=== PATIENT | female | born 1975 | race Asian ===

== ENCOUNTER 2016-02-27 07:03 | Emergency (ER) | payer OTHER ==
[2016-02-27 07:10] VITALS: BP 138/78
--- NOTE | 2016-02-27 07:18 | UC ---
Abdominal Pain Female HPI - HPI Summary HPI Summary: SUDDEN ONSET OF LOWER ABDOMINAL PAIN AROUND MIDNIGHT. CONSTANT SINCE THEN. SHARP AND CRAMPING. EMESIS X 2. NO FEVER OR DIARRHEA. NO BRBPR. SEXUALLY ACTIVE WITH - CONDOMS FOR CONTRACEPTION. RECENT RETURN FROM [place] 5 DAYS AGO. - History of Current Complaint Chief Complaint: UCAbdominalPain Stated Complaint: ABD PAIN Time Seen by Provider: 02/27/16 07:12 Hx Obtained From: Patient Hx Last Menstrual Period: 01/29 Onset/Duration: Sudden Onset Timing: Constant Severity Initially: Moderate Severity Currently: Moderate Pain Intensity: 8 Pain Scale Used: 0-10 Numeric Location: Discrete At: LLQ, Suprapubic Radiates: No Character: Cramping, Sharp Aggravating Factor(s): Nothing Alleviating Factor(s): Nothing Associated Signs and Symptoms: Positive: Decreased Appetite, Nausea, Vomiting Allergies/Adverse Reactions: Allergies Allergy/AdvReac Type Severity Reaction Status Date / Time No Known Allergies Allergy Verified 03/11/15 14:46 Home Medications: Home Medications Acetaminophen [Eq Acetaminophen] 325 mg PO 02/27/16 [History] PMH/Surg Hx/FS Hx/Imm Hx Previously Healthy: Yes Endocrine History Of: Denies: Diabetes Cardiovascular History Of: Denies: Hypertension, Pacemaker/ICD GI/ History Of: Denies: Renal Disease - Surgical History Surgical History: None - Family History Known Family History: Negative: Hypertension, Diabetes - Social History Alcohol Use: None Substance Use Type: None Smoking Status (MU): Never Smoked Tobacco Review of Systems Constitutional: Negative Respiratory: Negative Cardiovascular: Negative Gastrointestinal: Abdominal Pain, Vomiting Genitourinary: Negative All Other Systems Reviewed And Are Negative: Yes Physical Exam Triage Information Reviewed: Yes Appearance: Well-Nourished, Ill-Appearing, Pain Distress - MODERATE PAIN. PT HUNCHED OVER HOLDING LOWER ABDOMEN Vital Signs: Initial Vital Signs Temp 97.4 F 02/27/16 07:06 Pulse 58 02/27/16 07:06 Resp 18 02/27/16 07:06 BP 138/78 02/27/16 07:06 Pulse Ox 100 02/27/16 07:06 Vital Signs Reviewed: Yes Eyes: Positive: Conjunctiva Clear ENT: Positive: Hearing grossly normal Neck: Positive: Supple Respiratory Exam: Normal Cardiovascular Exam: Normal Abdomen Description: Positive: Soft, Guarding - VOLUNTARY, Other: - TTP SUPRAPUBIC AND LLQ REGIONS. Negative: CVA Tenderness (R), CVA Tenderness (L), Distended Bowel Sounds: Positive: Present Musculoskeletal: Positive: No Edema Neurological: Positive: Alert Psychological: Positive: Age Appropriate Behavior Skin: Negative: rashes Diagnostics - Laboratory Diagnostic Studies Completed/Ordered: URINE TEST NEGATIVE. URINE DIP SP. GR. 1.020, 2+ LEUKS Abd Pain Female Course/Dx - Course Course Of Treatment: PT FEELING BETTER WHILE SITTING IN EXAM ROOM. DISCUSSED TRANSFER TO ER VS CAREFUL MONITORING OF SX AT HOME. PT CHOOSES TO GO HOME. WILL GO TO ER WITHOUT FAIL IF SX WORSEN OR DO NOT IMPROVE. - Differential Dx/Diagnosis Differential Diagnosis: Appendicitis, Diverticulitis, Irritable Bowel Syndrome, Ovarian Cyst, Urinary Tract Infection Provider Diagnoses: ACUTE GASTROENTERITIS Discharge - Discharge Plan Condition: Stable Disposition: HOME Patient Education Materials: Gastroenteritis (ED) Referrals: Kitty Valente MD [Medical Doctor] - If Needed Additional Instructions: ENSURE ADEQUATE HYDRATION. CLEAR LIQUIDS, BLAND DIET. AVOID CAFFEINE, DAIRY, GREASY, SPICY FOODS. ONCE YOU ARE TOLERATING CLEAR LIQUIDS YOU CAN ADVANCE TO SIMPLE, BLAND FOODS. GO TO THE ER WITHOUT FAIL IF YOUR SYMPTOMS ARE WORSENING OR NOT IMPROVING OVER THE NEXT 24-48 HOURS.
== END 2016-02-27 07:46 | disposition home or self-care (01) ==
LOC: UCEAST 07:03
DX: K52.9 Noninfective gastroenteritis and colitis, unspecified (principal); R10.30 Lower abdominal pain, unspecified; R11.10 Vomiting, unspecified; Z32.02 Encounter for pregnancy test, result negative
CPT/HCPCS: 81002; 81025; 87086; 99211; G0463

== ENCOUNTER 2016-02-27 10:30 | Emergency (ER) | payer OTHER ==
[2016-02-27] MEDS ORDERED: Ketorolac INJ* 30 MG/ML 1 ML VIAL IV ONE (11:30)
[2016-02-27] MEDS ORDERED: Ondansetron INJ* 2 MG/ML VIAL IV ONE (11:30)
[2016-02-27] MEDS ORDERED: HYDROmorphone INJ* 1 MG/ML CARPUJECT SYRINGE IV ONE ×2 (11:30→12:59)
[2016-02-27] MEDS ORDERED: NS 0.9% 1000 ML* 1,000 ML IV ONE (11:31)
[2016-02-27 11:41] LABS: Hematocrit 45 % (35-47); Mean Corpuscular HGB Conc 34 g/dl (31-36); Mean Corpuscular Hemoglobin 31 pg (27-31); Mean Corpuscular Volume 92 fL (80-97); Mean Platelet Volume 8 um3 (7.4-10.4); Red Blood Count 4.83 10^6/ul (4.0-5.4); Red Cell Distribution Width 13 % (10.5-15); White Blood Count 12.1 10^3/ul (3.5-10.8)
[2016-02-27 11:54] LABS: ALT 13 U/L (7-52); AST 14 U/L (13-39); Albumin 5.1 g/dL (3.2-5.2); Alkaline Phosphatase 34 U/L (34-104); Anion Gap 13 mmol/L (2-11); BUN/Creatinine Ratio 16.2 (8-20); Blood Urea Nitrogen 12 mg/dL (6-24); C Reactive Protein < 1.00 mg/L (< 5.00); CO2 Carbon Dioxide 23 mmol/L (22-32); Calcium 10.2 mg/dL (8.6-10.3); Chloride 99 mmol/L (101-111); EGFR Non-African American 87.8 (>60); Glucose 106 mg/dL (70-100); Lipase 13 U/L (11.0-82.0); Potassium 3.1 mmol/L (3.5-5.0); Sodium 135 mmol/L (133-145); Total Protein 9.1 g/dL (6.4-8.9)
--- NOTE | 2016-02-27 12:10 | RAD ---
HISTORY: Left flank pain COMPARISONS: None TECHNIQUE: Multiple transverse and longitudinal ultrasound images were obtained of the left kidney using grayscale and color Doppler imaging. FINDINGS: RIGHT KIDNEY: No images are submitted of the right kidney LEFT KIDNEY: There is mildly echogenic renal fat. There are no shadowing echogenic foci to suggest calculi. There is no hydronephrosis. The left kidney measures 10 x 3.9 x 4 cm. BLADDER: No images are submitted of the bladder. AORTA AND IVC: No images are submitted of the vasculature. RETROPERITONEUM: Unremarkable. OTHER: None. IMPRESSION: NO APPRECIABLE HYDRONEPHROSIS OR NEPHROLITHIASIS OF THE LEFT KIDNEY
[2016-02-27 12:35] LABS: Budding Yeast Present (Absent); Urine Bacteria Absent (Absent); Urine Bilirubin Negative (Negative); Urine Glucose Negative (Negative); Urine Nitrite Negative (Negative)
--- NOTE | 2016-02-27 13:24 | RAD ---
CLINICAL HISTORY: Left flank pain COMPARISON: None TECHNIQUE: Multiple contiguous axial CT scans were obtained of the abdomen and pelvis, without intravenous contrast enhancement. Coronal and sagittal multiplanar reformations are submitted for review. Oral contrast was not administered. FINDINGS: The study is limited by the lack of intravenous contrast. This limits evaluation of the solid organs and vasculature. LUNG BASES: The lung bases are clear. LIVER: The liver is normal in shape, size, contour, and attenuation. BILE DUCTS: There is no intrahepatic or extrahepatic biliary dilatation. GALLBLADDER: The gallbladder is normal, without pericholecystic inflammatory change. PANCREAS: The pancreas is normal, without mass or ductal dilatation. SPLEEN: Normal in size and appearance. UPPER GI TRACT: Evaluation of the gastrointestinal tract is limited by incomplete gastric distention. The upper GI tract is unremarkable. SMALL BOWEL AND MESENTERY: The small bowel is normal in contour, course, and caliber. There is no obstruction or dilatation. COLON: The colon is normal in contour, course, caliber. There is no pericolonic inflammatory change. ADRENALS: Normal bilaterally. KIDNEYS: The kidneys are normal in shape, size, contour, and axis. There is no hydronephrosis or nephrolithiasis. BLADDER: The bladder is collapsed and is not well evaluated. PELVIC ORGANS: There is a 6.2 x 5.6 x 5.7 cm fat-containing mass of the lower anterior pelvis. The pelvic organs are otherwise normal for patient age and technique. AORTA: The aorta is normal. IVC: Unremarkable LYMPH NODES: There is no lymphadenopathy by size criteria. ABDOMINAL WALL: There is no evidence for abdominal wall hernia. BONES AND SOFT TISSUES: Unremarkable OTHER: There is trace amount of free fluid within the pelvic cul-de-sac. This may BE physiologic within a reproductive age female. IMPRESSION: 1. NO HYDRONEPHROSIS OR NEPHROLITHIASIS. 2. 6.2 CM FAT-CONTAINING MASS OF THE LOWER PELVIS, LIKELY A LARGE OVARIAN DERMOID CYST. IF THERE IS CLINICAL CONCERN FOR OVARIAN TORSION, CONSIDER ULTRASOUND OF THE PELVIS
--- NOTE | 2016-02-27 15:20 | RAD ---
INDICATION: Left lower quadrant pain . Dermoid cyst COMPARISON: CT February 27, 2016 TECHNIQUE: Longitudinal and transverse transvaginal scans of the pelvis were obtained. FINDINGS: Uterus: The uterus is normal in size. There are no focal masses. The uterus measures 9.0 x 3.9 x 4.4 cm. Endometrial thickness: The endometrial thickness is measured at 1.2 cm. . Free fluid: There is a small amount of free fluid. . Ovaries: The right ovary is measured at 2.4 x 1.7 x 2.0 cm. There is a solid, nonshadowing, echogenic mass measuring 1.6 cm most consistent with a fat-containing dermoid cyst of the right ovary. The left ovary measures 3.7 x 2.4 x 3.2 cm. This measurement is exclusive of the dominant, midline, fat-containing mass identified on the CT which is likely left ovarian in origin although no direct connection can be confirmed sonographically. The size of this fat-containing mass is difficult to ascertain on the ultrasound due to acoustic shadowing but it is noted measured at 6.[address] In addition, there is a complex 1.7 cm left ovarian cyst. Doppler interrogation demonstrates flow to each ovary. There is no evidence of ovarian torsion. Other: None IMPRESSION: 1. No evidence of ovarian torsion. 2. Suspect bilateral dermoid cysts with the dominant fat-containing mass likely arising from the left ovary. The CT suggest that this measures up to 6.3 cm. 3. Suggest gynecologic referral.
[2016-02-27] MEDS ORDERED: HYDROcodone/ACETAMIN 5-325 MG* 1 TAB PO ONE (15:29)
[2016-02-27] MEDS ORDERED: oxyCODONE/Acetamin 5/325 MG* TAB PO ONE (15:31)
--- NOTE | 2016-02-27 15:37 | ED ---
Nikos Blake Adam, scribed for Jaspreet Lema MD on 02/27/16 at 1132 . Abdominal Pain/Female - HPI Summary HPI Summary: Pt is a 40 year old female presenting with LLQ abdominal pain that set on last night, waking her from sleep. It is a sharp cramping pain that has been constant since it set on. It does not radiate anywhere. Pt states that she urinated this morning and it was normal. She denies dysuria and back pain. No Hx of kidney stones. Pt returned from [facility] 5 days ago. - History of Current Complaint Chief Complaint: EDAbdPain Stated Complaint: LOWER ABD PAIN Time Seen by Provider: 02/27/16 11:24 Hx Obtained From: Patient Onset/Duration: Sudden Onset, Lasting Hours, Still Present Timing: Constant Severity Initially: Moderate Severity Currently: Moderate Pain Intensity: 10 Pain Scale Used: 0-10 Numeric Location: Discrete At: LLQ Radiates: No Character: Sharp, Cramping Aggravating Factor(s): Nothing Alleviating Factor(s): Nothing Associated Signs and Symptoms: Positive: Negative Allergies/Adverse Reactions: Allergies Allergy/AdvReac Type Severity Reaction Status Date / Time No Known Allergies Allergy Verified 03/11/15 14:46 PMH/Surg Hx/FS Hx/Imm Hx Endocrine/Hematology History: Denies: Hx Diabetes Cardiovascular History: Denies: Hx Hypertension, Hx Pacemaker/ICD History: Denies: Hx Renal Disease Sensory History: Denies: Hx Hearing Aid Psychiatric History: Denies: Hx Panic Disorder Infectious Disease History: No Infectious Disease History: Denies: Traveled Outside the [place] in Last 30 Days - Family History Known Family History: Negative: Hypertension, Diabetes - Social History Occupation: Employed Full-time - Homemaker Lives: With Family - Alcohol Use: None Hx Substance Use: No Substance Use Type: Reports: None Hx Tobacco Use: No Smoking Status (MU): Never Smoked Tobacco Review of Systems Positive: Abdominal Pain - LLQ Genitourinary: Negative Negative: dysuria Musculoskeletal: Negative Negative: Arthralgia, Myalgia All Other Systems Reviewed And Are Negative: Yes Physical Exam Triage Information Reviewed: Yes Vital Signs On Initial Exam: Initial Vitals Temp Pulse Resp BP Pulse Ox 98.7 F 161 32 114/62 97 02/27/16 10:48 02/27/16 10:48 02/27/16 10:48 02/27/16 10:48 02/27/16 10:48 Vital Signs Reviewed: Yes Appearance: Positive: Well-Appearing, No Pain Distress Skin: Positive: Warm, Skin Color Reflects Adequate Perfusion, Dry Head/Face: Positive: Normal Head/Face Inspection Eyes: Positive: Normal ENT: Positive: Normal ENT inspection Neck: Positive: Supple, Nontender Respiratory/Lung Sounds: Positive: Clear to Auscultation, Breath Sounds Present Cardiovascular: Positive: RRR Abdomen Description: Positive: Nontender, Soft Bowel Sounds: Positive: Present Musculoskeletal: Positive: Normal Neurological: Positive: Normal Psychiatric: Positive: Normal, Affect/Mood Appropriate Diagnostics - Vital Signs Vital Signs Temp Pulse Resp BP Pulse Ox 02/27/16 10:48 98.7 F 161 32 114/62 97 - Laboratory Lab Results: Lab Results 02/27/16 02/27/16 02/27/16 Range/Units 11:15 11:15 11:15 WBC 12.1 H (3.5-10.8) 10^3/ul RBC 4.83 (4.0-5.4) 10^6/ul Hgb 15.0 (12.0-16.0) g/dl Hct 45 (35-47) % MCV 92 (80-97) fL MCH 31 (27-31) pg MCHC 34 (31-36) g/dl RDW 13 (10.5-15) % Plt Count 296 (150-450) 10^3/ul MPV 8 (7.4-10.4) um3 Neut % (Auto) 88.7 H (38-83) % Lymph % (Auto) 7.7 L (25-47) % [place] % (Auto) 2.9 (1-9) % Eos % (Auto) 0.1 (0-6) % Baso % (Auto) 0.6 (0-2) % Absolute Neuts (auto) 10.8 H (1.5-7.7) 10^3/ul Absolute Lymphs (auto) 0.9 L (1.0-4.8) 10^3/ul Absolute Monos (auto) 0.4 (0-0.8) 10^3/ul Absolute Eos (auto) 0 (0-0.6) 10^3/ul Absolute Basos (auto) 0.1 (0-0.2) 10^3/ul Absolute Nucleated RBC 0 10^3/ul Nucleated RBC % 0 Sodium 135 (133-145) mmol/L Potassium 3.1 L (3.5-5.0) mmol/L Chloride 99 L (101-111) mmol/L Carbon Dioxide 23 (22-32) mmol/L Anion Gap 13 H (2-11) mmol/L BUN 12 (6-24) mg/dL Creatinine 0.74 (0.51-0.95) mg/dL Est GFR ( Amer) 113.0 (>60) Est GFR (Non-Af Amer) 87.8 (>60) BUN/Creatinine Ratio 16.2 (8-20) Glucose 106 H (70-100) mg/dL Lactic Acid 2.4 H* (0.5-2.0) mmol/L Calcium 10.2 (8.6-10.3) mg/dL Total Bilirubin 0.80 (0.2-1.0) mg/dL AST 14 (13-39) U/L ALT 13 (7-52) U/L Alkaline Phosphatase 34 (34-104) U/L C-Reactive Protein < 1.00 (< 5.00) mg/L Total Protein 9.1 H (6.4-8.9) g/dL Albumin 5.1 (3.2-5.2) g/dL Globulin 4.0 (2-4) g/dL Albumin/Globulin Ratio 1.3 (1-3) Lipase 13 (11.0-82.0) U/L Urine Color Urine Appearance Urine pH (5-9) Ur Specific [place] (1.010-1.030) Urine Protein (Negative) Urine Ketones (Negative) Urine Blood (Negative) Urine Nitrate (Negative) Urine Bilirubin (Negative) Urine Urobilinogen (Negative) Ur Leukocyte Esterase (Negative) Urine WBC (Auto) (Absent) Urine RBC (Auto) (Absent) Ur Squamous Epith Cells (Absent) Urine Bacteria (Absent) Urine Yeast (Absent) Urine Glucose (Negative) 02/27/16 Range/Units 12:10 WBC (3.5-10.8) 10^3/ul RBC (4.0-5.4) 10^6/ul Hgb (12.0-16.0) g/dl Hct (35-47) % MCV (80-97) fL MCH (27-31) pg MCHC (31-36) g/dl RDW (10.5-15) % Plt Count (150-450) 10^3/ul MPV (7.4-10.4) um3 Neut % (Auto) (38-83) % Lymph % (Auto) (25-47) % [place] % (Auto) (1-9) % Eos % (Auto) (0-6) % Baso % (Auto) (0-2) % Absolute Neuts (auto) (1.5-7.7) 10^3/ul Absolute Lymphs (auto) (1.0-4.8) 10^3/ul Absolute Monos (auto) (0-0.8) 10^3/ul Absolute Eos (auto) (0-0.6) 10^3/ul Absolute Basos (auto) (0-0.2) 10^3/ul Absolute Nucleated RBC 10^3/ul Nucleated RBC % Sodium (133-145) mmol/L Potassium (3.5-5.0) mmol/L Chloride (101-111) mmol/L Carbon Dioxide (22-32) mmol/L Anion Gap (2-11) mmol/L BUN (6-24) mg/dL Creatinine (0.51-0.95) mg/dL Est GFR ( Amer) (>60) Est GFR (Non-Af Amer) (>60) BUN/Creatinine Ratio (8-20) Glucose (70-100) mg/dL Lactic Acid (0.5-2.0) mmol/L Calcium (8.6-10.3) mg/dL Total Bilirubin (0.2-1.0) mg/dL AST (13-39) U/L ALT (7-52) U/L Alkaline Phosphatase (34-104) U/L C-Reactive Protein (< 5.00) mg/L Total Protein (6.4-8.9) g/dL Albumin (3.2-5.2) g/dL Globulin (2-4) g/dL Albumin/Globulin Ratio (1-3) Lipase (11.0-82.0) U/L Urine Color Yellow Urine Appearance Cloudy Urine pH 8.0 (5-9) Ur Specific [place] 1.027 (1.010-1.030) Urine Protein 1+(30 mg/dl) H (Negative) Urine Ketones 2+ H (Negative) Urine Blood 1+ H (Negative) Urine Nitrate Negative (Negative) Urine Bilirubin Negative (Negative) Urine Urobilinogen Negative (Negative) Ur Leukocyte Esterase Trace H (Negative) Urine WBC (Auto) Trace(0-5/hpf) (Absent) Urine RBC (Auto) 1+(3-5/hpf) H (Absent) Ur Squamous Epith Cells Present H (Absent) Urine Bacteria Absent (Absent) Urine Yeast Present H (Absent) Urine Glucose Negative (Negative) Result Diagrams: 02/27/16 11:15 02/27/16 11:15 Lab Statement: Any lab studies that have been ordered have been reviewed, and results considered in the medical decision making process. - CT A/P CT Interpretation Completed By: Radiologist - IMPRESSION: 1. NO HYDRONEPHROSIS OR NEPHROLITHIASIS. 2. 6.2 CM FAT-CONTAINING MASS OF THE LOWER PELVIS, LIKELY A LARGE OVARIAN DERMOID CYST. IF THERE IS CLINICAL CONCERN FOR OVARIAN TORSION, CONSIDER ULTRASOUND OF THE PELVIS - EKG 11:01 Cardiac Rate: NL - 75 BPM EKG Rhythm: Sinus Rhythm - Baseline wander - Additional Comments Diagnostic Additional Comments: Lactic Acid - 2.4 Renal Ultrasound - IMPRESSION: NO APPRECIABLE HYDRONEPHROSIS OR NEPHROLITHIASIS OF THE LEFT KIDNEY Abdominal Pain Fem Course/Dx - Course Course Of Treatment: Ms. Wills presented with sudden onset of severe LLQ pain. She had a slight WBC elevation and a spot of blood in her urine. A CT was negative for stone but positive for a likely dermoid cyst. An U/S was obtained and negative for torsion. She has been given PO pain medicine and if this controls her pain she will be D/C'd for F/U with Dr. Gerardo. - Diagnoses Provider Diagnoses: Dermoid cyst of both ovaries Discharge - Discharge Plan Condition: Stable Disposition: HOME Prescriptions: oxyCODONE/Acetamin 5/325 MG* [Percocet 5/325 TAB*] 1 tab PO Q6H PRN #20 tab MDD 4 PRN Reason: Pain Referrals: No Primary Care Phys,NOPCP [Primary Care Provider] - The documentation as recorded by the Nikos melchor Adam accurately reflects the service I personally performed and the decisions made by me, Jaspreet Lema MD.
[2016-02-27 16:35] VITALS: BP 122/65
--- NOTE | 2016-05-11 11:23 | ED ---
Danny Blake Erika, scribed for Jaspreet Lema MD on 02/27/16 at 1544 . Progress - Results/Orders Results/Orders: Transvaginal US read by radiologist: IMPRESSION: 1. No evidence of ovarian torsion. 2. Suspect bilateral dermoid cysts with the dominant fat-containing mass likely arising from the left ovary. The CT suggest that this measures up to 6.3 cm. 3. Suggest gynecologic referral. Course/Dx - Diagnoses Provider Diagnoses: Dermoid cyst of both ovaries The documentation as recorded by the Danny melchor Erika accurately reflects the service I personally performed and the decisions made by Torey soler Richard L, MD.
== END 2016-02-27 16:34 | disposition home or self-care (01) ==
LOC: ED 10:30
DX: D27.9 Benign neoplasm of unspecified ovary (principal); R10.32 Left lower quadrant pain
CPT/HCPCS: 36415; 74176; 76775; 76830; 80053; 81003; 81015; 83605; 83690; 85025; 86140; 93005; 96374; 96375; 99283; A9270-GY; J1170; J1885; J2405

== ENCOUNTER → 2016-03-05 08:09 | Day surgery (SDC) | payer OTHER ==
[~2016-03-05 08:09] MED LIST: Atracurium* 10 MG/ML 10 ML VIAL ONE; Buffered Lidocaine 1% SYR 3ML* 3 ML/SYR SYRINGE INTRADERM ONE; Buffered Lidocaine 1% SYR 3ML* 3 ML/SYR SYRINGE ONE; Bupivacaine 0.5% W/EPI SDV* 30 ML VIAL ONE; Dexamethasone IV* 4 MG/ML 1 ML (4 MG) IV SLOW PU ONE; Dexamethasone IV* 4 MG/ML 1 ML (4 MG) ONE; EPHEDrine (Pressors)* 50 MG/ML VIAL ONE; Famotidine IV* 10 MG/ML 2 ML (20 mg) IV ONE; Famotidine IV* 10 MG/ML 2 ML (20 mg) ONE; Glycopyrrolate IV* 0.2 MG/ML 1 ML VIAL ONE; HYDROmorphone INJ* 1 MG/ML CARPUJECT SYRINGE IV PRN; Ibuprofen TAB* 600 MG PO PRN; Ketorolac INJ* 30 MG/ML 1 ML VIAL ONE; Lidocaine 2% MPF* 2 ML VIAL ONE; Midazolam* 1 MG/ML 5 ML VIAL (5 MG) ONE; Ondansetron INJ* 2 MG/ML VIAL IV PRN; Ondansetron INJ* 2 MG/ML VIAL ONE; Propofol* 10 MG/ML 20 ML BTL IV PUSH ONE; Scopolamine 1.5 mg* PATCH TRANSDERM PRN; Scopolamine PATCH Remove* 1 NOTE MISC PATCH OFF ONE; fentaNYL* 50 MCG/ML 2 ML VIAL (100 MCG VIAL) IV PRN; fentaNYL* 50 MCG/ML 5 ML VIAL (250 MCG VIAL) ONE; oxyCODONE/Acetamin 5/325 MG* TAB ONE; oxyCODONE/Acetamin 5/325 MG* TAB PO PRN
[2016-03-05 09:04] LABS: UR Preg Internal Control QC Line Present
[2016-03-05 14:41] VITALS: BP 102/66
--- NOTE | 2016-03-05 22:03 | OP ---
DATE OF OPERATION: 03/05/16 - [facility] DATE OF : 79 SURGEON: Rhea Gerardo MD CORRECTIONAL SUPERVISOR: Fran Jaimes MD PRE-OP DIAGNOSIS: Large left ovarian cyst suspected small right ovarian cyst. POST-OP DIAGNOSIS: Left ovarian dermoid cyst, physiological right ovarian cyst. OPERATIVE PROCEDURE: Mini laparotomy, left ovarian cystectomy. ESTIMATED BLOOD LOSS: Minimal. FLUIDS: Crystalloid. FINDINGS: The uterus palpated normally. The tubes appeared normal. The right ovary appeared normal with several small physiologic cysts with no evidence of a dermoid cyst on that side. The left ovary had a large 6+ cm cyst, which did appear to be a dermoid cyst. COMPLICATIONS: None. SPECIMENS: Left ovarian cyst. DRAINS: Rose catheter with 100 cc clear urine. DESCRIPTION OF PROCEDURE: After informed consent was signed, the patient was taken to the operating room where she was given general anesthesia that was found to be adequate. She was prepped and draped in the dorsal supine position. A Pfannenstiel skin incision was made with a scalpel approximately 6 to 7 cm in length. This was carried down to the underlying layer of fascia. The fascia was incised on either side of the midline with a scalpel. The fascial incision was extended laterally with the Morales scissors. The inferior edge of the fascial incision was grasped with Mckay clamps, tented up and dissected down bluntly. Then, the superior edge of the fascial incision was grasped with Mckay clamps, tented up, and dissected down with a combination of sharp and blunt dissection. The rectus muscles were in the midline and the peritoneum was entered bluntly. The peritoneal incision was extended with a combination of sharp and blunt dissection. The ovarian cyst was identified and delivered through the incision. An incision was made at the base of the cyst with cautery and then further extended with Metzenbaum scissors to excise the cyst intact and minimal amount of bleeding was stopped with cautery. The remaining ovary was then closed with 3-0 chromic in a running baseball stitch fashion. Good hemostasis was noted. The ovary was then placed back in the abdominal cavity and the right ovary was found and thoroughly inspected, but no evidence of a dermoid cyst was noted on that side. There was what appeared to be a hemorrhagic cyst. The abdomen was then irrigated. Good hemostasis was noted. The peritoneum was closed with 3-0 chromic in a running unlocked fashion. The fascia was then closed with 0 Vicryl in a running unlocked fashion and the skin was closed with 4-0 Vicryl in a running subcuticular fashion. Mastisol and Steri-Strips were placed. The patient was cleaned and the incision was covered. She was awakened from anesthesia, moved to the stretcher and taken to the recovery room in stable condition. [id number]/[facility] #: [id number] MTDD
== END | disposition home or self-care (01) ==
LOC: OR 08:09
PROVIDERS: ATTEND Obstetrics & Gynecology
DX: D27.1 Benign neoplasm of left ovary (principal); R10.32 Left lower quadrant pain
CPT/HCPCS: 81025; 88305; A9270-GY; J1100; J1885; J2250; J2405; J2704; J3010